=== PATIENT | male | born 1990 ===

== ENCOUNTER 2018-04-18 16:18 | Emergency (ER) | payer OTHER ==
[2018-04-18 16:35] VITALS: BP 122/80; PULSE 65; RESP 17; TEMP 99.2; O2SAT 98
--- NOTE | 2018-04-18 16:54 | C.PDOC ---
History Of Present Illness 27 y/o male presents to the ER complaining of runny nose,cough,sore throat, and body aches which have been present for the past 2 days. Patient denies having fever, chills, headache, nausea, vomiting, history of asthma and smoking. Time Seen by Provider: 04/18/18 16:41 Chief Complaint (Nursing): Cough, Cold, Congestion History Per: Patient History/Exam Limitations: no limitations Onset/Duration Of Symptoms: Days Current Symptoms Are (Timing): Still Present Severity: Moderate Past Medical History Reviewed: Historical Data, Nursing Documentation, Vital Signs Vital Signs: Last Vital Signs Temp 99.2 F 04/18/18 16:33 Pulse 65 04/18/18 16:33 Resp 17 04/18/18 16:33 BP 122/80 04/18/18 16:33 Pulse Ox 98 04/18/18 16:33 - Medical History PMH: No Chronic Diseases Surgical History: No Surg Hx Family History: States: No Known Family Hx - Social History Hx Alcohol Use: Yes Hx Substance Use: No - Immunization History Hx Tetanus Toxoid Vaccination: No Hx Influenza Vaccination: No Hx Pneumococcal Vaccination: No Review Of Systems Except As Marked, All Systems Reviewed And Found Negative. Constitutional: Positive for: Malaise. Negative for: Fever, Chills ENT: Positive for: Nose Discharge, Throat Pain Respiratory: Positive for: Cough Gastrointestinal: Negative for: Nausea, Vomiting, Abdominal Pain Physical Exam - Physical Exam Appears: Non-toxic, No Acute Distress Skin: Normal Color, Warm, Dry Head: Atraumatic, Normacephalic Eye(s): bilateral: Normal Inspection Nose: Discharge (mild rhinorrhea), Other (boggy nares) Oral Mucosa: Moist Throat: Erythema (mild erythema), No Exudate Neck: Supple Chest: Symmetrical Cardiovascular: Rhythm Regular Respiratory: Normal Breath Sounds, No Rales, No Rhonchi, No Wheezing Neurological/Psych: Oriented x3, Normal Speech ED Course And Treatment O2 Sat by Pulse Oximetry: 98 (RA) Pulse Ox Interpretation: Normal Medical Decision Making Medical Decision Making: Plan: --Tylenol PO --Motrin PO --Tessalon Perles Disposition Counseled Patient/Family Regarding: Diagnosis, Need For Followup, Rx Given - Disposition Referrals: [facility] [Outside] Disposition: HOME/ ROUTINE Disposition Time: 16:53 Condition: STABLE Prescriptions: Benzonatate [Tessalon Perles] 200 mg PO TID #24 sgl Ibuprofen [Motrin] 600 mg PO TID #15 tab Instructions: Upper Respiratory Infection (ED) Forms: General Discharge Instructions, [facility] (Croatian), Work Excuse - POA Present On Arrival: None - Clinical Impression Clinical Impression: Influenza-like illness, Upper respiratory infection - Scribe Statement The provider has reviewed the documentation as recorded by the Thea Watson Provider Attestation: All medical record entries made by the Coltenibalonzo were at my direction and personally dictated by me. I have reviewed the chart and agree that the record accurately reflects my personal performance of the history, physical exam, medical decision making, and the department course for this patient. I have also personally directed, reviewed, and agree with the discharge instructions and d isposition.
== END 2018-04-18 17:27 | disposition home or self-care (01) ==
LOC: C.ER 16:18
DX: J11.1 Influenza due to unidentified influenza virus with other respiratory manifestations (principal)